=== PATIENT | female | born 1985 | race Caucasian/White ===

== ENCOUNTER 2021-01-03 21:25 | Emergency (ER) | payer OTHER, SELFPAY ==
[2021-01-03 21:26] VITALS: BP 116/72; PULSE 92; RESP 16; TEMP 36.6; O2SAT 96; BMI 25.7
[2021-01-03 21:44] LABS: Mucous, Urine 0 SEEN /hpf (<or=2+)
[2021-01-03 21:47] LABS: Color, Urine Yellow (Yellow); Glucose, Dipstick Normal (Normal); Ketone-Dipstick Negative (Negative); Leukocyte Esterase-Dipstick 500 /ul (Negative); Nitrite-Dipstick Positive (Negative); Occult Blood-Urine 250 /ul (Negative); Protein-Dipstick 15 mg/dl (Negative); Specific Gravity, Urine 1.005 (1.002-1.030); Urine Clarity Cloudy (Clear); Urine Urobilinogen 1 mg/dl (Normal)
[2021-01-03 21:55] LABS: Urine Bilirubin Dipstick 1 mg/dL (Negative)
[2021-01-03 21:56] LABS: Squamous Epithelial Cells - UA 0-5 SEEN /hpf (5-10)
[2021-01-03 21:58] LABS: White Blood Cells 25-50 SEEN /hpf (0-5)
[2021-01-03 21:59] LABS: Bacteria RARE /hpf (None Seen); Red Blood Cells-Urine 0-5 SEEN /hpf (0-5)
[2021-01-03 22:02] LABS: Internal QC Validated? YES +Cl - CLEAR BKGD; Pregnancy, Urine Negative Negative
--- NOTE | 2021-01-03 22:19 | EDS_ITS ---
HPI History of Present Illness Chief Complaint: Complaint Informant: patient Onset/Context/Timing Onset: Today Context: Sudden Onset Timing: Continuous Quality: Sharp Location: Suprapubic Worsened by: Urination Relieved by: Nothing Narrative Narrative: Patient presents with dysuria that began today. Patient states it began rather suddenly. Patient states she has sharp pain in her suprapubic area. Patient states she also noted some blood clots in her urine today. Patient states her pain is worse whenever she urinates. Patient states nothing seems to make it better. Patient is currently on Bactrim for acne. Patient admits to nausea but denies any vomiting. Patient denies any back or flank pain. Patient denies any fevers or chills. PFSH PFSH Medical History no medical history no medical history Home Medications nitrofurantoin monohyd/m-cryst 100 mg PO Q12 #14 capsule 01/03/21 [Rx Last Taken Unknown] sulfamethoxazole-trimethoprim [Bactrim] 1 tab PO BID 01/03/21 [History Last Taken Unknown] Allergy/AdvReac Type Severity Reaction Status Date / Time amoxicillin [From Augmentin] Allergy Rash Verified 01/03/21 21:28 clavulanic acid Allergy Rash Verified 01/03/21 21:28 [From Augmentin] Surgical History no surgical history no surgical history Social History Smoking Status: Never smoker ROS ROS ED Constitutional Constitutional ED: Denies chills or fever(s) Eyes Eyes: Denies blurry vision or change in vision ENT ENT ED: Denies rhinorrhea or sore throat Cardiovascular Cardiovascular: Denies chest pain or palpitations Respiratory/Chest Respiratory/Chest: Denies cough or dyspnea Gastrointestinal Gastrointestinal: Reports nausea; Denies vomiting Genitourinary Genitourinary ED: Reports dysuria; Denies hematuria Musculoskeletal Musculoskeletal: Denies back pain or neck pain Integumentary Denies abscess or rash Neurologic Neurologic: Denies headache(s) or weakness Allergic/Immunologic Allergic/Immunologic ED: Denies mouth swelling or urticaria EXAM Physical Exam Const Vital Signs: 01/03/21 21:26 Temperature 97.9 F Temperature Source Temporal Pulse Rate 92 Respiratory Rate 16 Blood Pressure 116/72 Blood Pressure Mean 86 Pulse Ox 96 Oxygen Delivery Method Room Air Positive well nourished and well developed General Appearance ED: well developed HEENT Reports moist mucous membranes Neck supple and no JVD Resp normal respiratory effort and clear to auscultation bilaterally Cardio regular rate, regular rhythm and no murmurs GI normal to inspection, nondistended, normoactive bowel sounds Palpation: soft and tender suprapubic (Mild); Negative for guarding or rebound tenderness present Extremity normal to inspection General Extremety ED: Negative for edema or tenderness General Extremity: Negative for edema Neuro oriented x3, CN's II-XII intact bilaterally and no sensory deficits noted Sensorium / Orientation: alert Motor Exam: strength 5/5 throughout Psych mental status grossly normal Skin no rashes or lesions noted MDM MDM MDM Narrative Medical decision making narrative: Urinalysis showed positive nitrites and leukocyte esterase of 500 with 25-50 white blood cells. Occult blood was 250 with 0-5 red blood cells. Urine hCG was negative. Urine culture was ordered. Patient was given a dose of Macrobid here. Patient was given a prescription for Macrobid. Patient was instructed to drink plenty of fluids. Patient was instructed to follow-up with her primary care physician in 5 to 7 days. Patient understood and was agreeable with the plan. All questions were answered. Lab Data Attestation: I reviewed the patient's lab results. Labs: Laboratory Results - last 24 hr 01/03/21 21:38 Urine Color Yellow Urine Clarity Cloudy Urine pH 7.0 Ur Specific [place] 1.005 Urine Protein 15 H Urine Glucose (UA) Normal Urine Ketones Negative Urine Occult Blood 250 H Urine Nitrite Positive H Urine Bilirubin 1 H Urine Urobilinogen 1 H Ur Leukocyte Esterase 500 H Urine RBC 0-5 SEEN Urine WBC 25-50 SEEN Ur Squamous Epith Cells 0-5 SEEN Urine Bacteria RARE Urine Mucus 0 SEEN Urine Test Negative Discharge Plan Triage Chief Complaint: Complaint ED Provider: Andry Aviles Dx/Rx/DC Orders Clinical Impression: Urinary tract infection Instructions: ED CYSTITIS Female Adult Prescriptions: New nitrofurantoin monohyd/m-cryst [nitrofurantoin monohyd/m-cryst] 100 MG capsule 100 mg PO Q12 Qty: 14 RF: 0 No Action sulfamethoxazole-trimethoprim [Bactrim] 400-80 mg Tablet 1 tab PO BID RF: 0 Primary Care Provider: Amy Campos NP Referrals: Amy Campos SENIOR DATA ARCHITECT, SENIOR DATA ARCHITECT-C [Primary Care Provider] - 3-5 Days Disposition Disposition: Home, Self Care
[2021-01-03] MEDS: Nitrofurantoin Macrocrystals 100 MG Capsule PO (22:35)
[2021-01-03 22:37] VITALS: BP 111/62; PULSE 78; RESP 18; O2SAT 97
== END 2021-01-03 22:38 | disposition home or self-care (01) ==
PROVIDERS: Emergency Provider Emergency Medicine; PCP Nurse Practitioner
DX: N39.0 Urinary tract infection, site not specified (principal); R11.0 Nausea
CPT/HCPCS: 81001; 81025; 87077; 87086; 87088; 87186; 99283

== ENCOUNTER → 2023-01-14 | Outpatient (CLI) | payer OTHER, SELFPAY ==
--- NOTE | 2023-01-14 07:31 | MRI_ITS ---
STUDY: MRI LUMBAR SPINE WITHOUT CONTRAST REASON FOR EXAM: Female, 37 years old. pain --scheduled for surgery TECHNIQUE: Standardized fat and water weighted pulse sequences were obtained in the sagittal and axial planes. COMPARISON: None FINDINGS: T12-L1: Normal endplates. Normal disc height, hydration and morphology. Normal bilateral facet joints. Normal central canal and bilateral lateral recesses. Normal bilateral intervertebral neural foramina. Normal lumbar lordosis. Mild levoscoliosis centered at L3. Normal conus medullaris that terminates at the T12/L1. L1-2: Normal endplates. Normal disc height, hydration and morphology. Normal bilateral facet joints. Normal central canal and bilateral lateral recesses. Normal bilateral intervertebral neural foramina. L2-3: Normal endplates. Normal disc height, hydration and morphology. Normal bilateral facet joints. Normal central canal and bilateral lateral recesses. Normal bilateral intervertebral neural foramina. L3-4: Normal endplates. Normal disc height, hydration and morphology. Normal bilateral facet joints. Normal central canal and bilateral lateral recesses. Normal bilateral intervertebral neural foramina. L4-5: Mild bilateral facet hypertrophy with fluid in the facet joints consistent with instability and moderate ligament flavum hypertrophy. 5 mm of anterolisthesis of L4 on L5 with a moderate broad disc protrusion produces severe spinal stenosis, severe right neural foraminal stenosis with effacement of the right L4 nerve root and moderate left neural foraminal stenosis with abutment of the left L4 nerve root. Associated Modic type I endplate changes. L5-S1: 2 mm retrolisthesis of L5 on S1 with a mild broad disc protrusion with a moderate sized inferiorly extending central protrusion produces moderate spinal stenosis with moderate bilateral lateral recess stenosis and mild bilateral neural foraminal stenosis. Normal visualized sacral ala. Normal visualized paraspinous soft tissue structures. MRI/Spine Lumbar (Routine) IMPRESSION: Mild levoscoliosis and degenerative disc disease as described above. Electronically Signed: Lan Soto MD at 23:31 EST ,
== END | disposition home or self-care (01) ==
PROVIDERS: PCP Nurse Practitioner; Visit Provider Orthopaedic Surgery
DX: M48.061 Spinal stenosis, lumbar region without neurogenic claudication (principal)
CPT/HCPCS: 72148

== ENCOUNTER 2023-01-25 05:30 | Inpatient (IN) | payer OTHER, SELFPAY ==
[2023-01-14 09:21] LABS: Magnesium 2.1 mg/dL (1.6-2.6)
[2023-01-15 11:07] LABS: Hepatitis A AB, Total Negative (Negative)
[2023-01-16 09:51] LABS: HIV - WCH Non-Reactive (Nonreactive); Hepatitis B Surface Antibody Non-Reactive; Hepatitis C Antibody Non-Reactive (Nonreactive)
[2023-01-25] VITALS (15 sets, daily range): BP systolic 94–108; BP diastolic 53–76; PULSE 63–112; RESP 9–18; TEMP 36.2–37.1; O2SAT 97–100; BMI 24.2; BMI 27.3
[2023-01-25 06:14] LABS: Internal QC Validated? YES +Cl - CLEAR BKGD; Pregnancy, Urine Negative Negative
[2023-01-25] MEDS: Acetaminophen 500 MG Tablet 1000 MG PO ×3 (06:19→20:21)
[2023-01-25] MEDS: Magnesium 1 GM over 15 mins IV (06:19)
[2023-01-25] MEDS: Lactated Ringers 1,000 ML 15 ML IV (06:19)
--- NOTE | 2023-01-25 06:30 | RAD_ITS ---
PROCEDURE: Intraoperative imaging for L4-L5 fusion and disc replacement. DATE OF EXAMINATION: January 25, 2023. INDICATION: Female, 37 years old. Low back pain. FLUOROSCOPY TIME (if supplied): (2 minutes and 2.8 seconds) minutes/seconds. 24.55 mGy. 5 images were submitted. RAD/Lumbar Spine 2 or 3 Views IMPRESSION: Intraoperative fluoroscopic services provided for fusion at the L4-L5 level. Electronically Signed: Jordin Berg MD at 14:51 EST ,
[2023-01-25 06:32] LABS: Bedside Glucose 74 mg/dL (74-106)
--- NOTE | 2023-01-25 07:32 | HP.PCM_ITS ---
History and Physical Date of Admission: 01/25/23 Olesya has had significant low back pain with right worse than left lower extremity radiation for 2 to 3 years. Some of it may have been an injury about 3 years ago while skiing. She has had 2 sets of epidural injections which helped only temporarily. She is able to walk her months of distances but feels tired after a long walk and feels comfortable when leaning on to a cart. Her pain is along the lateral thigh and anteromedial leg on the right side. Both feet and toes feel numb. She started physical therapy few sessions about a year ago without significant relief. She used to do [employer] but stopped doing it about 2 months ago because of severe aggravating pain. She works at a desk job. Ortho Exam General General: Yes no acute distress Neurologic: Yes alert and Yes oriented x3 Spine SPINE TESTING CERVICAL THORACIC LUMBAR Musculoskeletal Strength 0=absent - 5=normal Details: Examination of the back shows midline paraspinal tenderness. Neurologic evaluation of lower extremities shows 5 x 5 power in all muscles normal sensations in all dermatomes. Coding Level of Care Code Off vis,est,level 3 Diagnoses Spinal stenosis at L4-L5 level M48.061 Degenerative spondylolisthesis M43.10 Time Spent (min) 35 Assessment and Plan Assessment and Plan (1) Spinal stenosis at L4-L5 level: Status: Acute (2) Degenerative spondylolisthesis: Status: Acute Plan I went over patient's x-rays from June and MRI from 4 days ago. She has L4-5 degenerative spondylolisthesis grade 1. She has severe stenosis at this level. I went over all treatment options with the patient including continued nonoperative measures versus surgery. Patient has been seen by Dr. Banda multiple times, I have reviewed his notes. Patient has had multiple epidural injections and tried physical therapy without much relief. At this point patient was having difficulties with activities of daily living and her quality of life is worsening. She wishes to proceed with surgical intervention. Surgical options were discussed which include entry most posterior approaches. L4-5 anterolateral oblique lumbar interbody fusion with percutaneous pedicle screw fixation was discussed in detail. All risk benefits and alternatives were discussed in detail. The risks include but are not limited to infection, bleeding, injury to nerves, and vessels including major vessels like IVC and a lien, persistent paresthesia, persistent pain, dural tear, need for further procedures, adjacent segment degeneration, pseudoarthrosis, hardware failure, paralytic ileus, visceral injury. Patient understands and agrees to the procedure. Consent was reviewed.
[2023-01-25] MEDS: Clindamycin 900 MG/50 ML BAG 75 MG IV ×3 (07:35→23:28)
[2023-01-25] MEDS: Ropivacaine 0.5% 30 ML Vial (11:41)
--- NOTE | 2023-01-25 11:47 | PCM.OPRPT ---
Report of Operation Date of Procedure: 01/25/23 Description of Surgical Findings:: Preoperative diagnosis: L4-5 spondylolisthesis, with severe stenosis Postoperative diagnosis: Same Name of procedures L4-5 oblique lumbar interbody fusion (OLIF), minimally invasive left sided approach, lateral decubitus: ? L4-5 anterolateral spinal fusion 53190 ? L4-5 insertion of cage [id number] ? Bone marrow aspirate left iliac crest ? Allograft cancellous chips [id number] Attending Surgeon: Dr. Ray Pimentel Co-surgeon: Dr. Francisco Banda Estimated blood loss: 40 mL Anesthesia: General Complications: None Indications: Patient is a 37-year-old pleasant lady who has had a long history of low back pain and right lower extremity radiation. Xrays & MRI revealed degenerative grade 2 spondylolisthesis at L4-5. After undergoing a prolonged period of nonoperative treatment, he elected to undergo surgical decompression & fusion. All surgical options were discussed with the patient including anterior and posterior approaches. All risks and benefits associated with the procedure were explained to the patient. The risks include but are not limited to infection, bleeding, injury to nerves and vessels including major vessels like IVC and aorta, persistent paresthesia, persistent pain, dural tear, need for further procedures, adjacent segment degeneration, pseudoarthrosis, hardware failure, retrograde ejaculation, paralytic ileus, etc. Procedure: The patient was identified in the preoperative holding suite using Unique patient identifiers. Skin was marked, consent was reviewed, and all questions were answered. The patient was then brought back to the operative room. A surgical timeout was performed to make sure correct procedure was being done on the correct patient and all operative room staff were on the same page. General endotracheal anesthesia was then given to the patient. Walker catheter was inserted. The patient was then carefully positioned in right lateral decubitus position with the left side up on a regular OR table. Axillary roll was placed and all bony prominences were well- padded. Hip positioners were placed in the posterior buttocks and anterior sternal area. The surgical area was prepped and draped in usual fashion. Preoperative antibiotic was injected IV as preoperative antibiotic. A final timeout was then again done just before starting the procedure. A 1.5 inch incision oblique was taken in the left lower quadrant of the abdomen 2 fingerbreadths away from the iliac crest and the lower ribs. Sharp dissection with Bovie was carried out up to the fascia covering the external oblique. The external oblique, internal oblique and transversus abdominis muscles were split along the muscle fibers and retroperitoneal space was entered. Sponge sticks were utilized to move the bowel and peritoneum [id number]-ucn-way and psoas muscle was exposed staying within the retroperitoneal plane. [employer] retractor system was positioned and the retractor blade was applied onto the psoas. The interval between psoas and midline structures was developed and appropriate retractors were placed. Once adequate interval was cleared, a disc space was identified and a marker x-ray was taken. This identified the L4-5 disc level. Annulotomy was done with a long handled knife. Pituitary was used to remove disc material. Curettes were used to prepare the endplates. Disc space spreaders were utilized to distract and increase the disc height. Near complete discectomy was performed. Trials of serially increasing sizes were used. A Jamshidi needle was used to aspirate bone marrow from the vertebral body as well as through a separate incision from the left iliac crest. This aspirate was mixed with the allograft bone chips. A Depuy [place] cage of size of the 18 x 12 mm with 15 degrees lordosis was packed with corticocancellous allograft bone chips mixed with bone marrow aspirate. This was inserted into the disc space. AP and lateral C-arm pictures were taken to confirm good position of the cage. Some bone chips were also packed around the cages. Screw with washer was placed into the lower L4 body with a washer partially covering the cage. Hemostasis was confirmed. The retractor blades were removed. Closure was done in layers with a continuous strand of # 1 Vicryl in all muscle layers. 2-0 Vicryl was used for subcutaneous tissue and 4-0 for Monocryl for the skin. Steri-Strips were applied and 4 x 4 gauze and Tegaderm were applied. Procedures Musculoskeletal [id number]: Other Procedure See Report
--- NOTE | 2023-01-25 11:53 | OP.PCM_ITS ---
Report of Operation Date of Procedure: 01/25/23 Description of Surgical Findings:: Preoperative diagnosis: L4-5 spondylolisthesis, with severe stenosis Postoperative diagnosis: Same Name of procedures L4-5 posterior percutaneous pedicle screw instrumentation, prone: ? L4-5 posterior spinal fusion ? L4-5 posterior pedicle screw instrumentation ? Allograft cancellous chips Attending Surgeon: Dr. Ray Pimentel Asst surgeon: Dr. Francisco Banda Estimated blood loss: 60 mL (total for entire case) Anesthesia: General Complications: None Description of procedure: After the anterior procedure was complete, the patient was then turned supine. The patient was then transferred to Sha table in prone position. Back was prepped and draped in usual fashion. C-arm AP view was then taken. C-arm was positioned in a way that L4 was centralized and superior endplate of was parallel to the beam. Spinous process was centered between the pedicles. Midline was marked with skin marker and lateral borders of the pedicles were also marked. Skin marker was also utilized to bang transversely across the middle of the pedicles at L4. 2 longitudinal paramedian incisions of 1 inch were placed. The fascia was incised vertically. Finger dissection was utilized to palpate the transverse process and facet joint. Viper Prime screws with towers were inserted and docked onto the transverse processes. This was then slowly moved medially to reach the superior articular process of L4. This was then confirmed on C-arm and then a mallet was utilized to drive the trocar into the pedicle going up to the medial wall of the pedicle on AP view. This was performed both sides. C-arm lateral view confirmed that the tip of the trocar was in the vertebral body, and the screw was advanced into the pedicle and vertebral body. This was repeated similarly at L5 bilaterally. Screw sizes were 7 x 45 mm at L4 and L5 bilaterally. 50 mm precontoured titanium 5.5 mm lordotic zaheer on the right and 45 mm on the left were then passed through the screw extensions and reduced down to the screws with the help of [employer] instrumentation system on both sides. AP and lateral view of the C-arm showed good positioning of the screws and cages. Final tightening with the torque screwdriver was then completed. [place] was utilized to roughen the facet joint at L4-5 on the right side. Cancellous allograft bone chips mixed with bone marrow aspirate were then placed over this decorticated area. Hemostasis was achieved. Closure was done in layers with 0 Vicryls for the fascia, 2-0 Vicryls for the subcutaneous tissue, and Monocryl for the skin. Dermabond was applied. Dressings were applied covered with Tegaderm. The patient was then turned supine onto a hospital bed. The patient was extubated and taken to PACU in stable condition. The patient tolerated the procedure well and no complications occurred. Depuy [place] cage & Viper Prime minimally invasive pedicle screw instrumentation system was utilized in this case. No dural tear was identified intraoperatively. I was present for the entirety of the case and performed the surgery. Admit VTE Documentation VTE Mechan Device Prophylaxis: SCD's Reason prophylaxis not ordered:: Treatment Not Indicated Procedures Musculoskeletal [id number]: Other Procedure See Report
--- NOTE | 2023-01-25 16:54 | PCM.PN.HOSP ---
Reason for Visit Reason for Visit: Diagnoses Encounter for other preprocedural examination (01/25/23) Subjective Subjective Patient is an orthopedic surgery primary patient, had L4-5 fusion surgery done this morning with Dr. Pimentel. Medicine consulted for postoperative management. Patient seen at bedside this evening, daughter present. Patient was lying comfortably in bed, conversing normally, no acute distress. She reports mild low back pain currently that is manageable. States she feels very fatigued right now and was wondering if this is normal postoperatively after anesthesia; I confirmed that it is very normal. She reports mild right eye discomfort with some tearing, was not present preoperatively. She otherwise denies any fevers or chills, chest pain, shortness of breath, abdominal pain. No other acute concerns at this time. Objective Data Objective Data Vital Signs: Vital Signs Temp Pulse Resp BP Pulse Ox O2 Del Method O2 Flow Rate 97.7 F L 103 H 18 95/53 L 100 Room Air 4 01/25/23 15:53 01/25/23 15:53 01/25/23 15:53 01/25/23 15:53 01/25/23 15:53 01/25/23 15:53 01/25/23 14:00 Oxygen Flow Rate (L/min) 4 Oxygen Delivery Method Room Air Weight: 72.257 kg Body Mass Index (BMI) 27.3 Intake & Output: Intake and Output for Last 24 Hours 01/23/23 01/24/23 01/25/23 23:59 23:59 23:59 Intake Total 2152 / 2152 Output Total 400 / 400 Balance 1752 / 1752 Lab / Micro Data Labs: Laboratory Results - last 24 hr 01/25/23 06:00: POC Glucose 74 01/25/23 10:08: Urine Test Negative Micro: Microbiology 01/14/23 08:25 Swab (Method) Nasal Screen MRSA/MSSA - Final Radiography Diagnostic Testing: Radiology Impression Lumbar Spine X-Ray 01/25/23 06:30 IMPRESSION: Intraoperative fluoroscopic services provided for fusion at the L4-L5 level. Electronically Signed: Jordin Berg MD at 14:51 EST , Physical Exam Const alert, oriented x3, no apparent distress, average body habitus, healthy appearing and well nourished Constitutional Narrative: Pleasant female, laying comfortably in bed, conversing normally, no acute distress. General Appearance: cooperative, comfortable, well kempt and well developed HEENT normocephalic, head/scalp atraumatic, hearing grossly normal bilaterally, nasal mucous membranes and turbinates normal and moist oral mucous membranes Eyes PERRL and EOMs intact bilaterally Eyes Narrative: Right eye appears mildly red with tearing noted. Neck full ROM, no lymphadenopathy and supple Lymph Lymphatic: no lymphadenopathy noted Chest inspection of chest normal Resp normal respiratory effort, normal air movement, no use of accessory muscles and clear to auscultation bilaterally Cardio regular rate, regular rhythm, no murmurs and peripheral pulses 2+ throughout GI normal to inspection, nondistended, normoactive bowel sounds, soft to palpation, non-tender and non-distended Back/Spine Back/Spine Narrative: Low back grossly normal exam. Did not attempt any movement of the patient. Extremity normal to inspection, full ROM and no pedal edema Skin no rashes or lesions noted Neuro moves all extremities and no focal motor deficits Speech: speech normal Psych mental status grossly normal Assessment & Plan Assessment/Plan (1) Spinal stenosis at L4-L5 level: PLAN: Plan Patient is a 37-year-old female who presented to [facility] on 01/25/[facility]23 for a planned procedure. Medicine consulted postoperatively for medical management. 1. L4-5 spondylolisthesis with severe stenosis S/p L4-5 posterior spinal fusion with percutaneous pedicle screw instrumentation with Dr. Pimentel with orthopedics on 01/25. Patient tolerated procedure well, seen at bedside postoperatively. Reports mild low back pain that is tolerable with pain medication. Denies any pain or discomfort radiating down her legs. ? Orthopedic surgery primary patient. Pain management with scheduled Tylenol, Mobic daily, as needed oxycodone and IV morphine, as needed Toradol. PT/OT/case management consulted. Follow-up a.m. labs. If remains stable tomorrow, likely okay for discharge home. 2. Right eye discomfort ? Mild right eye redness with tearing noted on exam. Would suspect this is due to tape used to cover the eyes during her procedure today. Very low concern for active infection. Will provide artificial tears as needed for relief. 3. History of ADHD ? Continue home methylphenidate. DVT prophylaxis: Lovenox CODE STATUS: Full code, verified Expected disposition: Home, tomorrow Total clinical time spent by myself addressing the patient's medical issues, reviewing all the data, and collaborating with patient's care team: 25 minutes. Charges/Coding Visit Charges Inpatient E&M: 27064 Subs Hosp L1
[2023-01-25] MEDS: Morphine 2 MG/ML Syringe IV (18:38)
[2023-01-25] MEDS: Senna/Docusate Sodium 1 Tablet 2 TABLET PO (20:20)
[2023-01-25] MEDS: oxyCODONE 5 MG Tablet PO (20:21)
[2023-01-25] MEDS: Morphine 4 MG/ML Syringe IV (23:27)
[2023-01-26 04:13] VITALS: BP 106/59; PULSE 60; RESP 14; TEMP 36.7; O2SAT 100
[2023-01-26] MEDS: oxyCODONE 5 MG Tablet PO ×3 (04:15→16:19)
[2023-01-26] MEDS: Ketorolac 15 MG/ML Vial IV (04:15)
[2023-01-26] MEDS: Acetaminophen 500 MG Tablet 1000 MG PO ×2 (06:52→13:52)
[2023-01-26 07:41] VITALS: BP 91/54; PULSE 67; RESP 16; TEMP 36.7; O2SAT 100
--- NOTE | 2023-01-26 08:45 | PN.HOSP_ITS ---
Reason for Visit Reason for Visit: Diagnoses Spinal stenosis, lumbar region without neurogenic claudication (01/25/23) Encounter for other preprocedural examination (01/25/23) Subjective Subjective Patient doing well after sleeping, has no acute complaints Objective Data Objective Data Vital Signs: Vital Signs Temp Pulse Resp BP Pulse Ox O2 Del Method O2 Flow Rate 98.1 F 67 16 91/54 L 100 Room Air 4 01/26/23 07:41 01/26/23 07:41 01/26/23 07:41 01/26/23 07:41 01/26/23 07:41 01/26/23 07:41 01/25/23 14:00 Oxygen Flow Rate (L/min) 4 Oxygen Delivery Method Room Air Weight: 72.257 kg Body Mass Index (BMI) 27.3 Intake & Output: Intake and Output for Last 24 Hours 01/24/23 01/25/23 01/26/23 23:59 23:59 23:59 Intake Total 2842 / 2842 190 / 190 Output Total 400 / 400 Balance 2442 / 2442 190 / 190 Lab / Micro Data Micro: Microbiology 01/14/23 08:25 Swab (Method) Nasal Screen MRSA/MSSA - Final Radiography Diagnostic Testing: Radiology Impression Lumbar Spine X-Ray 01/25/23 06:30 IMPRESSION: Intraoperative fluoroscopic services provided for fusion at the L4-L5 level. Electronically Signed: Jordin Berg MD at 14:51 EST Reading Location ID and State: [address] [place] [address] , Service support , Physical Exam Narrative General: Alert, oriented, no apparent distress HEENT: Atraumatic, normocephalic Eyes: extraocular movements grossly intact Neck: Supple Respiratory: normal respiratory effort Cardiovascular: no edema appreciated GI: nondistended Extremities: Moving all extremities Neuro: No overt focal neurological deficits Psych: Cooperative Assessment & Plan Assessment/Plan (1) Spinal stenosis at L4-L5 level: PLAN: Plan Patient is a 37-year-old female who presented to [facility] on 01/25/2023 for a planned procedure. Medicine consulted postoperatively for medical management. 1. L4-5 spondylolisthesis with severe stenosis S/p L4-5 posterior spinal fusion with percutaneous pedicle screw instrumentation with Dr. Pimentel with orthopedics on 01/25. Patient tolerated procedure well, seen at bedside postoperatively. Reports mild low back pain that is tolerable with pain medication. Denies any pain or discomfort radiating down her legs. ? Orthopedic surgery primary patient. Pain management with scheduled Tylenol, Mobic daily, as needed oxycodone and IV morphine, as needed Toradol. PT/OT/case management consulted. Follow-up a.m. labs. If remains stable tomorrow, likely okay for discharge home. -01/26: Patient doing very well today, a.m. labs pending but do not anticipate any medical barriers to discharge, patient otherwise healthy. Patient on scheduled Mobic for pain control 2. Right eye discomfort ? Mild right eye redness with tearing noted on exam. Would suspect this is due to tape used to cover the eyes during her procedure today. Very low concern for active infection. Will provide artificial tears as needed for relief. -01/26: Patient with no complaints today 3. History of ADHD ? Continue home methylphenidate. -01/26: Can resume methylphenidate on outpatient basis DVT prophylaxis: Per primary CODE STATUS: Full code, verified Charges/Coding Visit Charges Inpatient E&M: 52411 Subs Hosp L1
[2023-01-26 09:13] LABS: Hematocrit 34.1 % (37-47); Hemoglobin 10.9 g/dL (12.0-15.0); Mean Corpuscular Hgb 32.7 pg (27.0-32.0); Mean Corpuscular Volume 102.4 fL (81-99); Mean Platelet Vol. 9.7 fl (6.2-12.0); Platelet Count 173 K/mm3 (150-450); RBC Distribution Width CV 11.8 % (11.6-14.6); RBC Distribution Width SD 44.2 fl (35.1-43.9); Red Blood Count 3.33 M/mm3 (4.2-5.4); White Blood Count 5.6 K/mm3 (4.4-11.0)
[2023-01-26 09:40] LABS: Anion Gap 2 (5-15); BUN 9 mg/dL (7-18); BUN/Creat Ratio 12.4 RATIO (10-20); Calcium,Total 8.4 mg/dL (8.5-10.1); Chloride 107 mmol/L (98-107); Creatinine, Serum 0.72 mg/dL (0.55-1.02); EST Glomerular Filtration Rate 95 mL/min (>60); Est Glom Filt Rate - Afr Amer 115 mL/min (>60); Estimated Creatinine Clearance 91.48 ml/min; Glucose 96 mg/dL (74-106); Potassium 4.3 mmol/L (3.5-5.1); Sodium Level 138 mmol/L (136-145)
--- NOTE | 2023-01-26 09:50 | RAD_ITS ---
STUDY: X-RAY - LUMBAR SPINE REASON FOR EXAM: Female, 37 years old. s/p L4-5 fusion -- pls do Upright AP, Lat TECHNIQUE: 2 view(s) of the lumbar spine were obtained. COMPARISON: None FINDINGS: There is straightening of the normal lumbar lordosis. There is no substantial scoliosis. There is a normal alignment of the vertebrae. The patient is status post interpedicular screw and zaheer fixation of the L4-L5 disc space level with prosthetic disc. Normal disc space heights. The soft tissue structures are unremarkable. RAD/Lumbar Spine 2 or 3 Views IMPRESSION: Status post L4-L5 fusion with interpedicular screw and zaheer fixation device. Electronically Signed: Jordin Berg MD at 10:46 EST ,
--- NOTE | 2023-01-26 09:50 | PCM.PN.ORT ---
Subjective Subjective Postop day 1 status post L4-5 fusion. Doing well. Pain well-controlled. Mentions a little bit of flatus. Has walked twice to the bathroom with good balance. Voiding spontaneously. Preoperative right lower extremity radicular symptoms improved. Objective Data Objective Data Vital Signs: Vital Signs Temp Pulse Resp BP Pulse Ox O2 Del Method O2 Flow Rate 98.1 F 67 16 91/54 L 100 Room Air 4 01/26/23 07:41 01/26/23 07:41 01/26/23 07:41 01/26/23 07:41 01/26/23 07:41 01/26/23 07:41 01/25/23 14:00 Oxygen Flow Rate (L/min) 4 Oxygen Delivery Method Room Air Weight: 159 lb 4.8 oz Body Mass Index (BMI) 27.3 Intake & Output: Intake and Output for Last 24 Hours 01/24/23 01/25/23 01/26/23 23:59 23:59 23:59 Intake Total 2842 / 2842 190 / 190 Output Total 400 / 400 Balance 2442 / 2442 190 / 190 Lab / Micro Data 01/26/23 08:59 01/26/23 08:59 Labs: Laboratory Results - last 24 hr 01/26/23 08:59: WBC 5.6, RBC 3.33 L, Hgb 10.9 L, Hct 34.1 L, MCV 102.4 H, MCH 32.7 H, MCHC 32.0, RDW Std Deviation 44.2 H, RDW Coeff of Noa 11.8, Plt Count 173, MPV 9.7, Sodium 138, Potassium 4.3, Chloride 107, Carbon Dioxide 29.0, Anion Gap 2 L, BUN 9, Creatinine 0.72, Estim Creat Clear Calc 91.48, Est GFR (MDRD) Af Amer 115, Est GFR (MDRD) Non-Af 95, BUN/Creatinine Ratio 12.4, Glucose 96, Calcium 8.4 L Micro: Microbiology 01/14/23 08:25 Swab (Method) Nasal Screen MRSA/MSSA - Final Radiography Diagnostic Testing: Radiology Impression Lumbar Spine X-Ray 01/25/23 06:30 IMPRESSION: Intraoperative fluoroscopic services provided for fusion at the L4-L5 level. Electronically Signed: Jordin Berg MD at 14:51 EST , Physical Exam Narrative Dressings?CDI. Neurologic examination of lower extremity shows 5 x 5 power in all muscles normal sensations in all dermatomes. Assessment & Plan Assessment/Plan (1) Status post lumbar spinal fusion: PLAN: Plan PT OT eval today. Advance diet to solid food for lunch. Discharge potentially today, if she passes PT and tolerates a solid meal. Will obtain labs and upright x-rays this morning. Patient was in agreement.
--- NOTE | 2023-01-26 10:15 | CASEMGMT ---
Addendum entered by Olesya Esteban 01/26/23 11:12: PABLO LEWIS informed that Dr. Pimentel would like pt. to be discharged with a Polar Care. Pt's discharge plan updated to home with family support, polar care DME, and follow-up plans in place. Original Note: PABLO LEWIS Assessment: Face to Face with pt for initial transition planning/care coordination assessment. PABLO LEWIS introduced self and role at [facility], pt voices understanding and consents to assessment. Pt's sig-other, Martin, is also present in the room per pt's permission. Pt is A&O x4 and answers all questions appropriately at this time. Care providers, pharmacy, and demographics verified/updated. Admitting Dx: L4-5 anterior and posterior spinal PCP: aMry Lundy Specialists: Nicholas (Maintenance Of Way Supervisor in [place]) Preferred Pharmacy: [facility] Retail Insurance: MMO Prescription Benefit: yes LNOK: Martin Titler (Sig other) Living Will/HCPOA: No and No; pt. declines to receive information about ADs. 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 Living Arrangements: Pt lives with her sig-other in a 2 lore[address] home that is FF. 3 steps w/railing to enter. Pt. states prior to this admission she was I in all ADLs/IAdLs. Transportation: Self and sig-other DME: shower chair, ADA toilet, cane, grab bars, walker. Denies need for additional DME at this time. HHC/SNF: Denies previous SNF/HHC Pt states no concerns with going home at time of dc. States her sig other will be assisting her as well as her mother who is a nurse. Pt states no further concerns/needs. CM to follow. Advised pt to ask CM if any further question/concerns/needs arise, voices understanding. Pt Goal: Home with family support and follow-up plans in place. Plan:Home with family support and follow-up plans in place.
[2023-01-26] MEDS: Senna/Docusate Sodium 1 Tablet 2 TABLET PO (10:47)
[2023-01-26] MEDS: Influenza Virus Vac Quad 23-24 60 MCG/0.5 ML SYRINGE IM (10:48)
--- NOTE | 2023-01-26 11:07 | CASEMGMT ---
Addendum entered by Rosamaria Henderson 01/26/23 11:31: Messaged with [employer] rep who wants a letter stating the insurance will pay for the polar care prior to them submitting to insurance. TC back to O, provided reference # and spoke with Priscilla this time. She states that the previous call was a misquote and this is not a covered item. Original Note: TC to [facility] to confirm if polar care is covered. Spoke with Giovanni, this is covered under dx M48.061 and CPT code of E0218. Ref # for call is [id number]. [employer] does have cold therapy in stock. Updated of need for rx and documentation in note for necessity.
[2023-01-26] MEDS: Meloxicam 15 MG Tablet PO (12:00)
--- NOTE | 2023-01-26 12:35 | CASEMGMT ---
Addendum entered by Olesya Esteban 01/26/23 12:41: PABLO LEWIS as informed that pt. will be able to take her wrap from the hospital home with her and that if it is compatible with the polar care machine that she gets, she may not have to purchase a new wrap. PABLO LEWIS in to pt. room and informed pt. of this information. Pt. voices understanding and denies having further needs at this time. Original Note: PABLO LEWIS in to pt. room and informed her that Dr. Pimentel would like her to have a polar care machine to discharge with. Pt. informed that she can purchase one for $139.00 and the wrap would be $45, or she could rent the machine for $10/day. Pt. states she will just purchase the polar care machine and wrap. PABLO LEWIS provided pt. with script for polar care machine and informed her that if she chooses to get it through [employer], they are located nearby, but it is here choice. PABLO LEWIS also discussed with pt. that OT recommended pt. have a desktop support specialist. Pt. states she has already purchased one from [facility]. Pt. denies having any further questions/concerns at this time.
[2023-01-26 13:36] VITALS: BP 96/50; PULSE 87; RESP 16; TEMP 36.5; O2SAT 100
== END 2023-01-26 16:29 | disposition home or self-care (01) | DRG 455 ==
LOC: ACINP 06:04 → MS3 14:47
PROVIDERS: Anesthesiology; Admitting Provider Orthopaedic Surgery Orthopaedic Surgery of the Spine; PCP Nurse Practitioner; Referring Provider Orthopaedic Surgery Orthopaedic Surgery of the Spine; Visit Provider Orthopaedic Surgery Orthopaedic Surgery of the Spine
PROC: 0SG00A0 Fusion of Lumbar Vertebral Joint with Interbody Fusion Device, Anterior Approach, Anterior Column, Open Approach (ICD-10-PCS; principal; 2023-01-25 07:00)
DX: M43.16 Spondylolisthesis, lumbar region (principal); F90.9 Attention-deficit hyperactivity disorder, unspecified type; H57.11 Ocular pain, right eye; M48.061 Spinal stenosis, lumbar region without neurogenic claudication; Z23 Encounter for immunization
CPT/HCPCS: 36415; 72100; 76000; 80048; 81025; 82962; 83735; 85027; 86703; 86706; 86708; 86803; 86850; 86900; 86901; 86920; 87081; 94668; 97162; 97802; 99252; C1713; J7120; 90686; G0463; J2405; J3475

== ENCOUNTER → 2023-04-27 | Outpatient (CLI) | payer OTHER, SELFPAY ==
--- NOTE | 2023-04-27 17:00 | RAD_ITS ---
INDICATION: pain EXAMINATION/TECHNIQUE: X-RAY - XR Spine Lumbar 2 or 3 Views COMPARISON: Prior study dated: 03/08/2023 FINDINGS: VERTEBRAE: Posterior fusion hardware at L4-L5 with disc spacer. Hardware is unchanged and intact. Preserved vertebral body height. No fracture. No spondylolisthesis. Preservation of the normal lumbar lordosis. No significant facet arthropathy. DISCS: Mild disc space narrowing of L3-L4. Remaining disc spaces are maintained. INCLUDED ABDOMEN: Included bowel gas pattern is non-obstructive. RAD/Lumbar Spine 2 or 3 Views IMPRESSION: Intact fusion hardware at L4-L5. Mild disc space narrowing at L3-L4 noted. No acute abnormality. Electronically Signed: Todd Bonilla MD at 7:05 EST ,
== END | disposition home or self-care (01) ==
PROVIDERS: PCP Nurse Practitioner; Referring Provider Orthopaedic Surgery Orthopaedic Surgery of the Spine; Visit Provider Orthopaedic Surgery Orthopaedic Surgery of the Spine
DX: M54.50 Low back pain, unspecified (principal); Z98.1 Arthrodesis status
CPT/HCPCS: 72100

== ENCOUNTER → 2023-10-02 | Outpatient (CLI) | payer OTHER, SELFPAY ==
--- NOTE | 2023-10-02 17:06 | RAD_ITS ---
STUDY: X-RAY - FACIAL BONES REASON FOR STUDY: Female, 38 years old. ORBITAL LUMP TECHNIQUE: 3 view(s) of the facial bones. COMPARISON: None. FINDINGS: Normal bilateral frontozygomatic and zygomatic-temporal arches. Normal bilateral medial and inferior orbital wynn. Normal bilateral orbits. Normal visualized nasal bones. Normal anterior nasal spine. The remaining visualized osseous structures are normal. Normal visualized paranasal sinuses. RAD/Facial Bones min 3 Views IMPRESSION: Normal x-ray examination of the facial bones. Electronically Signed: Lan Soto MD at 12:52 EDT ,
== END | disposition home or self-care (01) ==
LOC: MTRAD 17:00
PROVIDERS: PCP Nurse Practitioner Family; Referring Provider Nurse Practitioner Family; Visit Provider Nurse Practitioner Family
DX: H05.89 Other disorders of orbit (principal)
CPT/HCPCS: 70150

== ENCOUNTER 2023-12-06 01:41 | Emergency (ER) | payer OTHER, SELFPAY ==
[2023-12-06 01:42] VITALS: BP 118/65; PULSE 94; RESP 16; TEMP 36.4; O2SAT 96; BMI 26.7
--- NOTE | 2023-12-06 01:48 | RAD_ITS ---
EXAM: XR RIGHT FOOT COMPLETE, 3 OR MORE VIEWS CLINICAL INDICATION: injury TECHNIQUE: Frontal, lateral and oblique views of the right foot. COMPARISON: No relevant prior studies available. FINDINGS: BONES/JOINTS: Unremarkable. No acute fracture. No subluxation. Normal alignment. Preservation of the joint space. No sclerotic or destructive changes observed. SOFT TISSUES: Unremarkable. No soft tissue swelling or gas. No radiopaque foreign body. RAD/Foot min 3 Views IMPRESSION: Negative right foot x-rays. Electronically Signed: Vargas Olivas MD at 2:38 EDT ,
--- NOTE | 2023-12-06 02:27 | EDS_ITS ---
HPI History of Present Illness Chief Complaint: Lower Extremity Injury Narrative Narrative: Patient is a 38-year-old female with past medical history of arthritis, ADHD, anxiety who presents to the emergency department chief complaint right foot pain. Patient states that earlier this evening she dropped a bungee goat feed on her right foot. States that she went home iced it took ibuprofen and Tylenol right before bed. States that she woke up and was throbbing which prompted her here further evaluation management. Patient states that she is able to ambulate. [facility] Medical History Wears glasses ADHD Anxiety History of steroid therapy Arthritis Anemia Back pain Non-smoker History of pain when walking Home Medications ?Medication ?Instructions ?Recorded ?Last Taken ?Type celecoxib 200 mg capsule 200 mg PO BID ARTHRITIS 01/13/23 Unknown History methylphenidate HCl 54 mg 54 mg PO DAILY ADHD 01/13/23 Unknown History tablet,extended release 24 hr multivitamin (Daily Multi-Vitamin 1 tab PO DAILY SUPPELEMNT 01/13/23 Unknown History tablet) acetaminophen 500 mg tablet 500 mg PO Q8 7 days #21 tabs 01/26/23 Unknown Rx methocarbamol 500 mg tablet 500 mg PO TID PRN pain/spasms 10 01/26/23 Unknown Rx days #30 tabs sennosides 8.6 mg-docusate sodium 2 tab PO BID PRN constipation 7 01/26/23 Unknown Rx 50 mg tablet (Stool days #30 tabs Softener-Stimulant Laxative) Allergy/AdvReac Type Severity Reaction Status Date / Time shrimp Allergy Intermediate Rash Verified 12/06/23 01:44 amoxicillin (From Augmentin) Allergy Rash Verified 12/06/23 01:44 clavulanic acid (From Allergy Rash Verified 12/06/23 01:44 Augmentin) Surgical History Hx of nasal septoplasty History of breast augmentation History of appendectomy Social History Smoking Status: Never smoker alcohol intake: current alcohol intake frequency: a few times a week what type of physical activity do you participate in: weight training frequency: 5-6 times per week ROS ROS ED ROS Narrative Constitutional: Denies fevers, chills, headaches Neurological: Denies numbness, weakness, tingling Musculoskeletal: Complains of right foot pain as noted above Skin: Complains of a scrape to her right foot EXAM Physical Exam Narrative Exam Narrative: General: Patient following commands knew that she was at [facility] there is 2023 Head: Atraumatic, normocephalic Eyes: PERRL bilateral, EOMI by, no conjunctival injection Neck: Soft, supple and trach midline Cardiovascular: Regular rate and rhythm no murmurs gallops rubs noted Respiratory: Clear to auscultation bilaterally Musculoskeletal: Patient has tenderness palpation at the lateral proximal right foot. No tenderness to palpation at the medial, lateral malleolus or approximately Extremities: DP pulses +2/4 in the bilateral lower extremities, +5/5 strength noted in the bilateral lower extremities, no pedal edema on exam Neurological: Patient following commands knew that she was at [facility] years 2023. Sensation grossly intact in the bilateral lower extremities when compared. Patient's sensation intact between her first and second toe bilaterally Skin: Warm, dry, superficial abrasion noted to the dorsal aspect of the right foot Const Vital Signs: 12/06/23 01:42 Temperature 97.6 F L Temperature Source Oral Pulse Rate 94 Respiratory Rate 16 Blood Pressure 118/65 Blood Pressure Mean 82 Pulse Ox 96 Oxygen Delivery Method Room Air MDM MDM MDM Narrative Medical decision making narrative: Patient is a 38-year-old female who presents to the emergency department with chief complaint of right foot pain after dropping a goat feed on her foot earlier this evening. Patient will have workup performed here on the differential diagnose includes but not limited to musculoskeletal strain, contusion, fracture. Once workup is obtained reviewed she will be reevaluated. Patient is unsure when her last tetanus shot was therefore this will be updated today. Patient's x-ray of her right foot was reviewed by myself independently and by radiology and showed no acute fracture or dislocation. Did discuss results with the patient she would like to go home. She was advised to ice, elevate and rotate Tylenol and ibuprofen around the clock. She is advised to return with worsening symptoms or concerns. She is encouraged to follow-up with primary care physician outpatient setting. All question concerns answered she is discharged home in stable condition Radiography Diagnostic Testing: Clinical Impression(s) from Imaging Studies Foot X-Ray 12/06/23 01:48 IMPRESSION: Negative right foot x-rays. Electronically Signed: Vargas Olivas MD at 2:38 EDT , Discharge Plan Triage Chief Complaint: Lower Extremity Injury ED Provider: Tommy Hagan Dx/Rx/DC Orders Clinical Impression: Acute pain of right foot Instructions: ED RICE Prescriptions: No Action methylphenidate HCl 54 mg tablet extended release 24hr 54 mg PO DAILY celecoxib 200 mg capsule 200 mg PO BID multivitamin [Daily Multi-Vitamin] Tablet 1 tab PO DAILY acetaminophen 500 mg Tablet 500 mg PO Q8 7 Days Qty: 21 0RF sennosides-docusate sodium [Stool Softener-Stimulant Laxat] 8.6-50 mg Tablet 2 tab PO BID PRN (Reason: constipation) 7 Days Qty: 30 0RF methocarbamol 500 mg tablet 500 mg PO TID PRN (Reason: pain/spasms) 10 Days Qty: 30 0RF Primary Care Provider: Mary Lundy Referrals: Mary Lundy, MALVIN-C [Primary Care Provider] - Activity Restrictions/Additional Instructions: Your tetanus shot was updated today. Return with worsening symptoms or any other concerns. Follow-up with your primary care physician outpatient setting. Ice, elevate, rotate Tylenol and ibuprofen. Print Language: Indonesian Disposition Disposition: Home, Self Care
[2023-12-06] MEDS: Diphth,Pertuss(Acell),Tet Vac 0.5 ML Vial IM (03:02)
[2023-12-06 03:04] VITALS: BP 106/66; PULSE 98; RESP 16; TEMP 36.4; O2SAT 99
== END 2023-12-06 03:16 | disposition home or self-care (01) ==
PROVIDERS: Emergency Provider Emergency Medicine; PCP Nurse Practitioner Family; Visit Provider Emergency Medicine
DX: M79.671 Pain in right foot (principal); W20.8XXA Other cause of strike by thrown, projected or falling object, initial encounter; Z23 Encounter for immunization; F41.9 Anxiety disorder, unspecified; Z79.899 Other long term (current) drug therapy
CPT/HCPCS: 73630; 90715; 99283

== ENCOUNTER → 2024-07-25 | Outpatient (CLI) | payer OTHER, SELFPAY ==
--- NOTE | 2024-07-25 15:08 | VDLE_ITS ---
Reason For Study Reason For Study: Left leg swelling RIGHT LEFT CFV is compressible, spontaneous, phasic, competent GSV is normal. and demonstrates normal augmentation. CFV is compressible, spontaneous, phasic, competent, Procedure and demonstrates normal augmentation. This is a venous duplex using B-mode, color flow and FV is compressible, spontaneous, phasic, competent spectral Doppler. and demonstrates normal augmentation. Exam performed in department. POP V is compressible, spontaneous, phasic, competent A preliminary report was called and/or faxed to and demonstrates normal augmentation. [place]. T/P Trunk is compressible. PTV is compressible. LT PerV is compressible. VL/Venous Duplex US, Unilateral Interpretation Summary Deep veins of the left lower extremity are patent and compressible segmentally. There is no evidence of left lower extremity deep vein thrombosis. Valvular competence appears intact within the p roximal deep venous system on the left . The left great saphenous vein appears patent and compressible segmentally. The right common femoral vein is patent and compressible . Ordering Physician: Aretha Meléndez Referring Physician: Mary Lundy Performed By: Heather Mendoza RVT
[2024-07-25 16:06] LABS: D-Dimer Quantitative (DVT/PE) < 0.27 FEU/ug/m (0.27-0.49)
== END | disposition home or self-care (01) ==
LOC: CVS 14:46
PROVIDERS: PCP Nurse Practitioner Family; Referring Provider Internal Medicine; Visit Provider Internal Medicine
DX: M79.89 Other specified soft tissue disorders (principal)
CPT/HCPCS: 36415; 85379; 93971

== ENCOUNTER → 2025-01-13 | Outpatient (CLI) | payer OTHER, SELFPAY ==
[2025-01-13 17:38] LABS: Hematocrit 39.8 % (37-47); Hemoglobin 13.5 g/dL (12.0-15.0); Immature Granulocytes Count 0.010 X10^3/uL (0.0-0.0); Mean Corp Hgb Conc 33.9 g/dL (32-36); Mean Corpuscular Volume 94.3 fL (81-99); Mean Platelet Vol. 10.4 fl (6.2-12.0); NRBC Flagged by Analyzer 0 % (0-5); Platelet Count 243 K/mm3 (150-450); RBC Distribution Width CV 11.5 % (11.6-14.6); RBC Distribution Width SD 39.3 fl (35.1-43.9); Red Blood Count 4.22 M/mm3 (4.2-5.4); White Blood Count 5.6 K/mm3 (4.4-11.0)
[2025-01-13 18:23] LABS: AST(SGOT) 21 U/L (<=31); Alanine Aminotransfer ALT/SGPT 16 U/L (<=34); Albumin, Serum 4.4 g/dL (3.5-5.0); Alkaline Phosphatase 55 U/L (35-104); Anion Gap 12 (5-15); BUN 17 mg/dL (4-19); BUN/Creat Ratio 23.8 RATIO (10-20); Calcium,Total 9.3 mg/dL (7.6-11.0); Carbon Dioxide 22.3 mmol/L (21.0-32.0); Chloride 104 mmol/L (98-108); Cholesterol 154 mg/dL (<=200); Ferritin 99 ng/mL (22-378); Globulin 2.8 g/dL (2.2-4.2); Glucose 88 mg/dL (70-99); Low Density Lipoprotein Calc. 71 mg/dL; Potassium 3.9 mmol/L (3.3-5.1); Triglycerides 47 mg/dL; Very Low Density Lipoprotein 9 mg/dL (5-40); Vitamin B12 1025 pg/mL (180-914); Vitamin D,25 Hydroxy 33.1 ng/mL (30-100); cholesterol:hdl ratio screen 2.13
[2025-01-13 18:36] LABS: Iron 90 ug/dL (50-170)
== END | disposition home or self-care (01) ==
LOC: BFHLAB 15:58
PROVIDERS: PCP Nurse Practitioner Family; Visit Provider Nurse Practitioner Family
DX: Z00.01 Encounter for general adult medical examination with abnormal findings (principal); L65.9 Nonscarring hair loss, unspecified; D64.9 Anemia, unspecified; R73.01 Impaired fasting glucose
CPT/HCPCS: 36415; 80053; 80061; 82306; 82607; 82728; 83036; 83540; 84439; 84443; 85025